=== PATIENT | female | born 1985 | race Caucasian/White ===

== ENCOUNTER 2017-05-07 11:48 | Inpatient (IN) | payer MEDICAID ==
[2017-05-15 19:35] LABS: APPEARANCE,URINE CLEAR; BILIRUBIN,URINE NEGATIVE (NEGATIVE); COLOR,URINE YELLOW; GLUCOSE, URINE NEGATIVE (NEGATIVE); KETONES,URINE TRACE mg/dL (NEGATIVE); LEUKOCYTE ESTERASE,URINE NEGATIVE (NEGATIVE); NITRITE,URINE NEGATIVE (NEGATIVE); PROTEIN,URINE NEGATIVE (NEGATIVE); URINE SPECIFIC GRAVITY 1.024; UROBILINOGEN,URINE NEGATIVE mg/dL (<2.0)
[2017-05-15 19:52] LABS: URINE AMPHETAMINES SCREEN NEGATIVE; URINE BARBITURATES SCREEN NEGATIVE; URINE BENZODIAZEPINES SCREEN NEGATIVE; URINE COCAINE SCREEN NEGATIVE; URINE MARIJUANA (THC) SCREEN NEGATIVE; URINE METHADONE SCREEN NEGATIVE; URINE PHENCYCLIDINE SCREEN NEGATIVE
[2017-05-15] MEDS ORDERED: RINGERS SOLUTION,LACTATED 300 ML IV ONE (19:54)
[2017-05-15] MEDS ORDERED: DINOPROSTONE 10 MG VAGINAL INSERT.SR PV PRN (19:54)
[2017-05-15] MEDS ORDERED: DINOPROSTONE 10 MG VAGINAL INSERT.SR ONE (20:01)
[2017-05-15 20:03] LABS: HEMATOCRIT 38.2 % (36.0-47.0); HEMOGLOBIN 13.4 g/dL (12.0-15.5); MEAN CORPUSCULAR HEMOGLOBIN 31.1 pg (27.0-33.4); MEAN CORPUSCULAR VOLUME 89 fl (80-97); PLATELET COUNT 165 10^3/uL (150-450); RED BLOOD COUNT 4.29 10^6/uL (3.72-5.28); RED CELL DISTRIBUTION WIDTH 13.3 % (11.5-14.0)
[2017-05-15] MEDS: RINGERS SOLUTION,LACTATED 1,000 ML IV PRN (20:11)
[2017-05-16] MEDS ORDERED: MISOPROSTOL 0.1 MG TABLET PV ONE ×2 (10:40→19:10)
[2017-05-16] MEDS ORDERED: MISOPROSTOL 0.1 MG TABLET ONE ×3 (10:52→19:16)
--- NOTE | 2017-05-16 10:53 | L&D Progress Notes ---
PROGRESS NOTES Datetime Report Generated by CPN: 05/16/2017 10:52 PROGRESS NOTE Impression: Normal Progression of Labor Procedures: Sterile Vag Exam Plan: Continue Present Management; Induction; Cervical Ripening Informed Consent Obtained: Vaginal Delivery; Induction of Labor; Risks, Benefits and Alternatives Discussed Vital Signs : Reviewed; Within Normal Limits Comment: Patient admitted for IOL last evening at 41+2ega with unfavorable cervix. Closed/th/hi/firm/post. Cervidil placed at 2000 last pm. Cervidil removed at 0800 and patient showered and ate breakfast. Cervix soft/post/closed/0/high. Offered repeat cervidil dose versus cytotec. She desires cytotec. Reviewed process of IOL and that will likely not deliver until tomorrow. VAGINAL EXAM Dilatation: 0 Dilatation: 0 Effacement: 0 Effacement: 0 Station: -3 Station: -3 Contractions: irreg MEMBRANES Membranes: Intact FETUS A FHR - Baseline: 135 Monitoring: External US Variability: Moderate 6-25bpm Accelerations: 15X15 Decelerations: None FHR Category: Category I : 41.0 : 29.0 Presentation: Vertex Presentation: Vertex SIGNATURE SIGNATURE: [id number] Signature: with User ID: [email or web address]
[2017-05-16] MEDS ORDERED: OXYTOCIN/NORMAL SALINE 20 UNIT/1,000 ML RTUINJ ONE (23:51)
[2017-05-16] MEDS ORDERED: OXYTOCIN/NORMAL SALINE 20 UNIT/1,000 ML RTUINJ IV PRN (23:55)
[2017-05-17] MEDS: RINGERS SOLUTION,LACTATED 1,000 ML IV PRN ×2 (00:02→19:48)
[2017-05-17] MEDS ORDERED: NALBUPHINE HCL INJ 10 MG/1 ML AMPULE INJ ONE (00:30)
--- NOTE | 2017-05-17 00:31 | L&D Progress Notes ---
PROGRESS NOTES Datetime Report Generated by CPN: 05/17/2017 00:30 PROGRESS NOTE Impression: Normal Progression of Labor Procedures: Sterile Vag Exam Plan: Induction; Cervical Ripening Informed Consent Obtained: Vaginal Delivery; Induction of Labor; Risks, Benefits and Alternatives Discussed Comment: Pt has recievd 4 doses of Cytotec 0.25mcg. Cvx with minimal change. however, since now fingertip and soft, will begin pitocin and then may be able to place FB in am. reviewed IOl and poss of Section if unable to obtain labor. EFW approx 8#12oz. REviewed possibility of CPD VAGINAL EXAM Dilatation: ft Effacement: 25 Station: -3 Contractions: irreg FETUS A FHR - Baseline: 125 Monitoring: External US Variability: Moderate 6-25bpm Accelerations: 15X15 Decelerations: None FHR Category: Category I FETUS C SIGNATURE: [id number] Signature: with User ID: [email or web address]
[2017-05-17] MEDS ORDERED: BUPIVACAINE HCL 0.25 % INJ/PF (2.5 MG/1 ML) 30 ML VIAL ONE (05:18)
[2017-05-17] MEDS ORDERED: EPHEDRINE SULFATE INJ 50 MG/1 ML AMPULE ONE ×2 (05:18→21:50)
[2017-05-17] MEDS ORDERED: FENTANYL/BUPIVACAINE/NS/PF 200 MCG/100 ML RTUINJ EPI ONE ×2 (05:18→15:10)
[2017-05-17 06:01] LABS: ABSOLUTE EOSINOPHILS # (AUTO) 0.1 10^3/uL (0.0-0.6); ABSOLUTE LYMPHOCYTES (AUTO) 1.8 10^3/uL (0.5-4.7); ABSOLUTE MONOCYTES (AUTO) 0.7 10^3/uL (0.1-1.4); ABSOLUTE NEUT (AUTO) 6.5 10^3/uL (1.7-8.2); BASOPHILS % (AUTO) 0.3 % (0-2); EOSINOPHILS % (AUTO) 0.7 % (0-6); HEMATOCRIT 37.1 % (36.0-47.0); HEMOGLOBIN 12.7 g/dL (12.0-15.5); LYMPHOCYTES % (AUTO) 19.6 % (13-45); MEAN CORPUSCULAR HEMOGLOBIN 30.7 pg (27.0-33.4); MEAN CORPUSCULAR HGB CONC 34.3 g/dL (32.0-36.0); MEAN CORPUSCULAR VOLUME 89 fl (80-97); MONOCYTES % (AUTO) 7.6 % (3-13); PLATELET COUNT 120 10^3/uL (150-450); RED BLOOD COUNT 4.15 10^6/uL (3.72-5.28); RED CELL DISTRIBUTION WIDTH 13.2 % (11.5-14.0); SEGMENTED NEUTROPHILS % (AUTO) 71.8 % (42-78); TOTAL CELLS COUNTED % (AUTO) 100 %; WHITE BLOOD COUNT 9.1 10^3/uL (4.0-10.5)
--- NOTE | 2017-05-17 07:54 | L&D Progress Notes ---
PROGRESS NOTES Datetime Report Generated by CPN: 05/17/2017 07:54 PROGRESS NOTE Impression: Normal Progression of Labor Procedures: Sterile Vag Exam Plan: Continue Present Management; Induction; Cervical Ripening Informed Consent Obtained: Vaginal Delivery; Induction of Labor; Risks, Benefits and Alternatives Discussed Vital Signs : Reviewed; Within Normal Limits Comment: Patient with cvx 1-2cm and meconium SROM earlier this am. Cooks catheter placed. Continue with cervical ripening. Reviewed pubic bone still prominent but pelvis feels that there is more room now that status post epidural. VAGINAL EXAM Dilatation: 1 Effacement: 25 Station: -3 Contractions: q 1 -2 FETUS A FHR - Baseline: 125 Monitoring: External US Variability: Moderate 6-25bpm Accelerations: 15X15 Decelerations: None FHR Category: Category I FETUS C SIGNATURE: [id number] Signature: with User ID: [email or web address]
--- NOTE | 2017-05-17 11:24 | L&D Progress Notes ---
PROGRESS NOTES Datetime Report Generated by CPN: 05/17/2017 11:24 PROGRESS NOTE Impression: Reassuring Heart Rate; Rupture of Membranes Plan: Continue Present Management; Induction Vital Signs : Reviewed; Within Normal Limits Comment: resting on rt side, Cat 1 strip, irreg uc's, discussed POC FETUS A FHR - Baseline: 135 Variability: Moderate 6-25bpm Accelerations: 15X15 Decelerations: None FETUS C SIGNATURE: [id number] Assignment: Miriam Andrade MD Signature: with User ID: [email or web address] : with User ID: [email or web address]
--- NOTE | 2017-05-17 13:48 | L&D Progress Notes ---
PROGRESS NOTES Datetime Report Generated by CPN: 05/17/2017 13:48 PROGRESS NOTE Impression: Reassuring Heart Rate Plan: Continue Present Management; Induction Vital Signs : Reviewed; Within Normal Limits Comment: comfortable, irreg uc's, potter bulb still in place, Cat 1 strip, periods of minimal variability (sleep cycle) reverting to Cat 1 FETUS A Variability: Moderate 6-25bpm Decelerations: None FHR Category: Category I FETUS C SIGNATURE: [id number] Assignment: Miriam Andrade MD Signature: with User ID: [email or web address] : with User ID: [email or web address]
[2017-05-17] MEDS ORDERED: ONDANSETRON HCL INJ/PF 4 MG/2 ML SDV IV ONE (20:36)
[2017-05-17] MEDS ORDERED: ONDANSETRON HCL INJ/PF 4 MG/2 ML SDV ONE ×2 (20:38→21:50)
[2017-05-17] MEDS ORDERED: CITRIC ACID/SODIUM CITRATE ORAL SOLN 15 ML UDCUP ONE (21:33)
[2017-05-17] MEDS ORDERED: CEFAZOLIN 2 GM/D5W RTU 2 GM/50 ML RTUPB IV ONE (21:33)
[2017-05-17] MEDS ORDERED: SODIUM BICARBONATE 8.4% INJ 50 MEQ/50 ML DISP.SYRIN ONE (21:34)
[2017-05-17] MEDS ORDERED: LIDOCAINE 2%/EPINEPHRINE INJ 20 ML VIAL ONE (21:34)
[2017-05-17] MEDS ORDERED: METOCLOPRAMIDE HCL INJ/PF 10 MG/2 ML SDV ONE (21:34)
[2017-05-17] MEDS ORDERED: FAMOTIDINE INJ/PF 20 MG/2 ML SDV IV ONE (21:34)
[2017-05-17] MEDS ORDERED: FENTANYL CITRATE INJ/PF 100 MCG/2 ML AMPUL ONE (21:49)
[2017-05-17] MEDS ORDERED: OXYTOCIN 10 UNIT/ML VIAL ONE ×2 (21:49→22:23)
[2017-05-17] MEDS ORDERED: KETOROLAC TROMETHAMINE INJ/PF 30 MG/1 ML SDV ONE (21:49)
[2017-05-17] MEDS ORDERED: ACETAMINOPHEN 100 ML IV ONE (21:50)
[2017-05-17] MEDS ORDERED: MIDAZOLAM 2 MG/2 ML INJ ONE (21:50)
[2017-05-17] MEDS ORDERED: OXYTOCIN/NORMAL SALINE 20 UNIT/1,000 ML RTUINJ ONE (21:50)
[2017-05-17] MEDS ORDERED: MISOPROSTOL 0.2 MG TABLET ONE ×2 (22:21→22:22)
[2017-05-17] MEDS ORDERED: METHYLERGONOVINE MALEATE INJ/PF 0.2 MG/1 ML AMPULE ONE (22:22)
[2017-05-17] MEDS ORDERED: CARBOPROST TROMETHAMINE INJ 250 MCG/1 ML AMPULE ONE (22:22)
[2017-05-17] MEDS ORDERED: MEPERIDINE HCL/PF INJ 25 MG/1 ML DISP.SYRIN ONE (23:15)
[2017-05-17] MEDS ORDERED: OXYTOCIN/NORMAL SALINE 20 UNIT/1,000 ML RTUINJ IV PRN (23:33)
[2017-05-17] MEDS ORDERED: OXYCODONE-ACETAMINOPHEN 5-325 MG TABLET PO PRN (23:33)
[2017-05-17] MEDS ORDERED: PROMETHAZINE HCL INJ 25 MG/1 ML VIAL IV PRN (23:33)
[2017-05-17] MEDS ORDERED: ACETAMINOPHEN 100 ML IV PRN (23:33)
[2017-05-17] MEDS ORDERED: HYDROMORPHONE HCL INJ/PF 2 MG/ML AMPULE IV PRN (23:33)
[2017-05-17] MEDS ORDERED: DIPH/PERTUSS(ACELL)/TETANUS VAC/PF 0.5 ML SYR (>=10YO) IM PRN (23:33)
[2017-05-17] MEDS ORDERED: MEASLES,MUMPS&RUBELLA VACC/PF 0.5 ML VIAL SUBCUT PRN (23:33)
[2017-05-17] MEDS ORDERED: ACETAMINOPHEN 325 MG TABLET PO PRN (23:33)
[2017-05-17] MEDS ORDERED: SIMETHICONE 80 MG TAB.CHEW PO PRN (23:33)
[2017-05-17] MEDS ORDERED: AMPICILLIN SOD/SULBACTAM 3 GM VIAL IV PRN (23:45)
--- NOTE | 2017-05-17 23:47 | Delivery Summary ---
Del Sum A-C Datetime Report Generated by CPN: 05/17/2017 23:47 DELIVERY PERSONNEL DELIVERY PERSONNEL: [id number] Delivery Doctor:: Miriam Andrade MD Anesthesiologist:: Erin Fernando MD SUPERVISOR FUR DRESSING:: Matias Ocasio CRNA Labor and Delivery Nurse:: Mayra Ahumada RN Ct Manager:: Shila Nassar RN Neonatal Nurse Practitioner:: EILEEN Vanegas Nursery Nurse:: Aisha Welch RN Nursery Nurse:: Annemarie Angela RN Construction Checker/CHAIR CAR ATTENDANT: ST Betty Construction Checker/CHAIR CAR ATTENDANT: ST Anne Additional Personnel: : Robby Hernandez CNA MATERNAL INFORMATION Delivery Anesthesia: Epidural Medications After Delivery: Pitocin Bolus-Please Comment; Cytotec 400mcg Per Rectum/Vagina Meds After Delivery Comment: 40 units pitocin in OR. 0.2 mg methergine intrauterine. cytotec 600 sublingual. cytotec 400mcg per rectum Maternal Complications: Chorioamnionitis; Maternal Fever Other Maternal Complications: prior to delivery temp was 99.1 axillary temperature spiked to 102 during csection LABOR SUMMARY EDC: 05/07/2017 00:00 No. Babies in Womb: 1 Attempted: No Labor Anesthesia: Epidural LABOR INFORMATION Reason for Induction: Post Dates Onset of Labor: 05/17/2017 01:00 Cervical Ripening Agents: Cervidil; Haney Balloon; Cytotec @ Oxytocin: Induction Group B Beta Strep: NEGATIVE Antibiotics # of Doses: 0 Antibiotics Time of Last Dose: 2149 Name of Antibiotic Given: ancef 2 grams Steroids Given: None Reason Steroids Not Administered: Not Applicable MEMBRANES Membranes Rupture Method: Spontaneous Rupture of Membranes: 05/17/2017 01:11 Length of Rupture (hr): 21.10 Amniotic Fluid Color: Moderate Meconium Amniotic Fluid Amount: Large Amniotic Fluid Odor: Foul STAGES OF LABOR Stage 3 hr: 0 Stage 3 min: 1 Total Time in Labor hr: 21 Total Time in Labor min: 18 VAGINAL DELIVERY Episiotomy: None Laceration #1: None Laceration Extension #1: N/A Sponge Count Correct: N/A Sharps Count Correct: N/A CSECTION DELIVERY Primary Indication: Other Other Primary Indication: Failure to progress Secondary Indication: N/A CSection Urgency: Non-Scheduled CSection Incidence: Primary Labor: Labor Elective: N/A CSection Incision: Lower Uterine Transverse BABY A INFORMATION Infant Delivery Date/Time: 05/17/2017 22:17 Method of Delivery: Born in Route : No : N/A Forceps: N/A Vacuum Extraction: N/A Shoulder Dystocia : No PRESENTATION/POSITION BABY A Presentation: Cephalic Cephalic Presentation: Vertex Vertex Position: Left Occipital Anterior Breech Presentation: N/A PLACENTA INFORMATION BABY A Placenta Delivery Time : 05/17/2017 22:18 Placenta Method of Delivery: Manual Removal Placenta Status: Delivered SCORES BABY A Heart Rate 1 min: >100 bpm Resp Effort 1 min: Good Cry Reflex Irritability 1 min: Cough or Sneeze or Pulls Away Muscle Tone 1 min: Active Motion Color 1 min: Body [place], Extremities Blue Resuscitation Effort 1 min: Tactile Stimulation SCORE 1 MIN: 9 Heart Rate 5 min: >100 bpm Resp Effort 5 min: Good Cry Reflex Irritability 5 min: Cough or Sneeze or Pulls Away Muscle Tone 5 min: Active Motion Color 5 min: Body [place], Extremities Blue Resuscitation Effort 5 min: Tactile Stimulation SCORE 5 MIN: 9 INFORMATION BABY A Gestational Age at Delivery: 41.3 Gestational Status: Late Term- 41- 41.6 Weeks Outcome : Liveborn Condition : Stable Infant Sex: Male IDENTIFICATION BABY A Infant Verification Date/Time: 05/17/2017 22:34 ID Band Number: [id number] Mother's Name Verified: Yes RN Verifying Infant: Mateusz Hussein, RN Additional Verifying Personnel: Mateusz Hernandez CNA WEIGHT/LENGTH BABY A Birthweight (gm): 3930 Weight (lb): 8 Weight (oz): 11 Infant Length (in): 20.50 Length (cm): 52.07 CORD INFORMATION BABY A No. Cord Vessels: 3 Nuchal Cord : N/A Cord Blood Taken: Yes-For Eval (Mom's Blood Type - or O+) Suction: Mouth; Nose ASSESSMENT BABY A Complications: Meconium Physical Findings at Delivery: Caput Succedaneum; Molding of the Head Infant Respirations: Tachypnea Skin to Skin: No Center Consultant/ALS Called : No Care By: chief of internal medicine mcgregor and rn angela Transferred To: NICU BABY B INFORMATION : N/A
--- NOTE | 2017-05-18 00:18 | OPERATIVE REPORT E ---
Operative Report NAME: MAURY PAGAN : 1985 AGE: 31Y DATE OF SURGERY: 05/17/2017 ROOM: LR200 PREOPERATIVE DIAGNOSIS: 1. IUP at 41 weeks and 3 days, failure to progress. 2. Chorioamnionitis. POSTOPERATIVE DIAGNOSIS: 1. IUP at 41 weeks and 3 days, failure to progress. 2. Chorioamnionitis. SURGEON: MIRTHA TRINH M.D. ANESTHESIA: Dr. Fernando with an epidural. FINDINGS: Male infant in cephalic presentation with Apgars of 7 and 8, febrile at delivery and meconium present. *------*. Umbilical cord measured 12 inches. ESTIMATED BLOOD LOSS: 600 mL. SPECIMENS REMOVED: None. OPERATION: Low transverse hysterotomy section. PROCEDURE IN DETAIL: Patient was taken to the operating room, prepared and draped in a normal sterile fashion in the supine position with a leftward tilt. A transverse skin incision was made with the scalpel and carried through to the underlying layer of fascia with the same scalpel. The fascia was incised in the midline and extended laterally with Rakesh. The fascia was then dissected sharply from the rectus muscle sharply with Rakesh and the rectus muscle was divided. The peritoneal cavity was entered bluntly. The bladder blade was inserted and the hysterotomy was nicked with the scalpel and extended laterally with surgeon finger fracture. The infant was then delivered atraumatically. The nose and mouth was suctioned with a suction bulb and cord was clamped and cut and the infant was handed off to waiting python programmer. The cord blood was collected and at this time we noted that the infant was feeling very warm and this was conveyed to the nursery. The cord blood was collected and the placenta was removed manually. The uterus was exteriorized and cleared of clots and debris. The hysterotomy was closed with 0 Monocryl in a running locked fashion. The second layer of the same suture was used to imbricate to ensure hemostasis. It was noted that the uterus was quite boggy, therefore Methergine was injected directly into the muscle 0.2 mg and Cytotec was placed sublingually to assist with apnea. No hemorrhage was noted at the time and the uterine muscle did resolve its apnea during the procedure. The rectus muscle and peritoneal cavity were reapproximated with a mattress suture of 2-0 chromic. The fascia was closed with 0 Vicryl. The subcutaneous layer was closed with plain catgut. The skin was closed with 4-0 Vicryl. The patient tolerated the procedure well. Sponge, lap, and needle counts were correct x2 and the patient was taken to recovery in stable condition. DICTATING PHYSICIAN: MIRTHA TRINH M.D. [id number] PHY#: [id number] ID: [id number] JOB#: [id number] ACCT: [id number] cc:MIRTHA TRINH M.D. >
[2017-05-18] MEDS ORDERED: MORPHINE SULFATE 10 MG/ML INJ ONE (00:22)
[2017-05-18] MEDS ORDERED: KETOROLAC TROMETHAMINE INJ/PF 30 MG/1 ML SDV ONE (00:51)
--- NOTE | 2017-05-18 01:28 | Admission Physical ---
Datetime Report Generated by CPN: 05/18/2017 01:28 CURRENT ADMISSION Chief Complaint: Scheduled Induction of Labor Chief Complaint: Scheduled Induction of Labor Indication for Induction: Postterm Indication for Induction: Post Dates Indication for Induction: Term, Intrauterine ; Postterm, Intrauterine Indication for Induction: Postterm, Intrauterine Admit Plan: Admit to Unit; Initiate Labor Induction Protocol Admit Plan: Admit to Unit; Initiate Labor Induction Protocol ALLERGIES Medication Allergies: No Medication Allergies: No Known Allergies (05/15/2017) Medication Allergies: No Known Allergies (03/11/2014) Latex: No Latex Allergies OBSTETRICAL HISTORY EDC: 05/07/2017 00:00 : 1 Para: 0 Term: 0 : 0 SAB: 0 IAB: 0 Ectopic: 0 Livin Cesareans: 0 VBACs: 0 Multiple Births: 0 Gestational Diabetes: No Rh Sensitization: No Incompetent Cervix: No [place]: No Infertility: No ART Treatment: No Uterine Anomaly: No IUGR: No Hx Previous C/S: No Macrosomia: No Hx Loss/Stillborn: No PIH: No Hx : No Placenta Previa/Abruption: No Depression/PP Depression: No PTL/PROM: No Post Hemorrhage: No Current Procedures: Ultrasound; NST Obstetrical History Comments: CURRENT SEE RECORDS Alcohol: No Marijuana : No Cocaine: No Other Illicit Drugs: No Cigarettes: Former Smoker. [id number] MEDICAL HISTORY Diabetes: No Blood Transfusion: No Pulmonary Disease (Asthma, TB): No Breast Disease: No Hypertension: No Mushroom Picker Surgery: No Heart Disease: No Hosp/Surgery: No Autoimmune Disorder: No Anesthetic Complications: No Kidney Disease: No Abnormal Pap Smear: Yes Neuro/Epilepsy: No Psychiatric Disorders: No Other Medical Diseases: Yes Hepatitis/Liver Disease: No Significant Family History: No Varicosities/Phlebitis: No Trauma/Violence : No Thyroid Dysfunction: No Medical History Comments: ABN PAP- HPV; OBESITY INFECTIOUS HISTORY Gonorrhea: No Genital Herpes: No Chlamydia: No Tuberculosis: No Syphilis: No Hepatitis: No HIV/AIDS Exposure: No Rash or Viral Illness: No HPV: Yes PHYSICAL EXAM General: Normal General: Normal HEENT: Normal HEENT: Normal Neurologic: Normal Neurologic: Normal Thyroid: Normal Thyroid: Normal Heart: Normal Heart: Normal Lungs: Normal Lungs: Normal Breast: Deferred Breast: Deferred Back: Normal Back: Normal Abdomen: Normal Abdomen: Normal Genitourinary Exam: Normal Genitourinary Exam: Normal Extremities: Normal Extremities: Normal DTRs: Normal DTRs: Normal Pelvic Type: Adequate Pelvic Type: Adequate Vital Signs: Reviewed Vital Signs: Reviewed VAGINAL EXAM Dilatation: 1 Dilatation: ft Dilatation: 0 Dilatation: 0 Effacement: 25 Effacement: 25 Effacement: 0 Effacement: 0 Station: -3 Station: -3 Station: -3 Station: -3 Contraction Comments: q 1 -2 Contraction Comments: irreg Contraction Comments: irreg MEMBRANES Membranes: Intact FETUS A EGA: 41.1 EGA: 41.1 Monitoring: External US Monitoring: External US FHR- Baseline: 140 Variability: Minimal - Undetectable to <=5bpm Decelerations: None Presentation: Vertex Presentation: Vertex Admit Comment: Last entry in error. She is here for induction for postdates. Admit Comment: Bleeding placenta previa. We will plan a double set up exam and consider a c section PLANS FOR LABOR AND DELIVERY Labor and Delivery: None Pain Management: Epidural Feeding Preference: Breast Benefit of Breast Feed Discussed: Yes Circumcision: Yes INFORMED CONSENT Informed Consent Obtained: Vaginal Delivery; Induction of Labor; Risks, Benefits and Alternatives Discussed Informed Consent Obtained: Vaginal Delivery; Induction of Labor; Risks, Benefits and Alternatives Discussed Informed Consent Obtained: Vaginal Delivery; Induction of Labor; Risks, Benefits and Alternatives Discussed Signature: Electronically signed by Willard Valdovinos MD ([facility]) on 05/15/2017 at 21:21 with User ID: [email or web address] Signature: Electronically signed by Willard Valdovinos MD ([facility]) on 05/15/2017 at 21:18 with User ID: [email or web address] : Electronically signed by Willard Valdovinos MD ([facility]) on 05/15/2017 at 21:18 with User ID: [email or web address]
[2017-05-18] MEDS ORDERED: AMPICILLIN SODIUM/SULBACTAM NA 3 GM in NORMAL SALINE 100 ML IV SCH (02:00)
[2017-05-18] MEDS: RINGERS SOLUTION,LACTATED 1,000 ML IV PRN (02:11)
[2017-05-18] MEDS: IBUPROFEN 800 MG TABLET PO SCH ×4 (02:48→17:59)
[2017-05-18] MEDS: OXYCODONE-ACETAMINOPHEN 5-325 MG TABLET PO PRN ×4 (05:43→20:14)
[2017-05-18] MEDS: KETOROLAC TROMETHAMINE INJ/PF 30 MG/1 ML SDV IV SCH ×3 (06:36→22:08)
[2017-05-18 07:18] LABS: HEMATOCRIT 27.3 % (36.0-47.0); MEAN CORPUSCULAR HEMOGLOBIN 31.2 pg (27.0-33.4); MEAN CORPUSCULAR HGB CONC 34.6 g/dL (32.0-36.0); MEAN CORPUSCULAR VOLUME 90 fl (80-97); PLATELET COUNT 116 10^3/uL (150-450); RED BLOOD COUNT 3.04 10^6/uL (3.72-5.28); RED CELL DISTRIBUTION WIDTH 13.2 % (11.5-14.0); WHITE BLOOD COUNT 13.3 10^3/uL (4.0-10.5)
[2017-05-18 07:20] LABS: HEMOGLOBIN 9.5 g/dL (12.0-15.5)
--- NOTE | 2017-05-18 08:26 | PDOC PROGRESS REPORT ---
Subjective-OB Progress Note for:: 05/18/17 Subjective: Hsb in room, talking, pain under control, baby still in NICU, plans to breastfeed, no nausea, eating and drinking, potter in place Physical Exam (OB) Vital Signs: Temp Pulse Resp BP Pulse Ox 98.4 F 89 18 108/52 L 95 05/18/17 05:26 05/18/17 05:26 05/18/17 05:26 05/18/17 05:26 05/18/17 05:26 Intake & Output 05/17/17 05/18/17 05/19/17 06:59 06:59 06:59 Intake Total 1600 Output Total 900 Balance 700 - Dressing Removed: No - op site Incision: Dressing - Lochia Lochia Amount: Small 10-25 ml Lochia Color: Rubra/Red - Abdomen Description: Soft, Round Hernia Present: No Fundal Description: Firm, Midline Fundal Height: u/u - u/2 Objective-Diagnostic Laboratory: 05/18/17 07:00 05/18/17 07:00 WBC 13.3 H RBC 3.04 L Hgb 9.5 L D Hct 27.3 L MCV 90 MCH 31.2 MCHC 34.6 RDW 13.2 Plt Count 116 L Assessment and Plan(PN) - Assessment and Plan (1) Chorioamnionitis, delivered, current hospitalization Is this a current diagnosis for this admission?: Yes (2) Delivery by emergency caesarean section Is this a current diagnosis for this admission?: Yes (3) Post term at 41 weeks gestation Is this a current diagnosis for this admission?: Yes - Time Spent with Patient Time with patient: Less than 15 minutes Medications reviewed and adjusted accordingly: Yes - Disposition Anticipated Discharge: Home Within: within 48 hours
[2017-05-18] MEDS: PRENATAL VITAMIN W DHA CAPSULE PO SCH (10:25)
[2017-05-18] MEDS: DOCUSATE SODIUM 100 MG CAPSULE PO SCH ×2 (10:25→17:58)
[2017-05-18] MEDS: AMPICILLIN SODIUM/SULBACTAM NA 3 GM in NORMAL SALINE 100 ML IV SCH ×2 (10:26→17:59)
[2017-05-19] MEDS: IBUPROFEN 800 MG TABLET PO SCH ×4 (00:35→18:01)
[2017-05-19] MEDS: OXYCODONE-ACETAMINOPHEN 5-325 MG TABLET PO PRN ×2 (03:34→19:32)
--- NOTE | 2017-05-19 08:14 | PDOC PROGRESS REPORT ---
Subjective-OB Progress Note for:: 05/19/17 Physical Exam (OB) Vital Signs: Temp Pulse Resp BP Pulse Ox 98.4 F 82 16 123/78 98 05/19/17 08:02 05/19/17 08:02 05/19/17 08:02 05/19/17 08:02 05/19/17 08:02 Intake & Output 05/18/17 05/19/17 05/20/17 06:59 06:59 06:59 Intake Total 1600 1122 Output Total 900 1150 Balance 700 -28 - PIH/Pre-Eclampsia Clonus: Negative Headache: Absent Epigastric Pain: No Visual Changes: No - Dressing Removed: No Incision: Well Approximated - Lochia Lochia Amount: Scant < 10 ml Lochia Color: Rubra/Red - Abdomen Description: Soft, Round Hernia Present: No Bowel Sounds: Normoactive Flatus Presence: Present Stool: No Fundal Description: Firm Fundal Height: u/u - u/2 - Respiratory Breath sounds: Clear - Extremities Calf: Normal Objective-Diagnostic Laboratory: 05/18/17 07:00 Assessment and Plan(PN) - Time Spent with Patient Medications reviewed and adjusted accordingly: Yes - Disposition Anticipated Discharge: Home
[2017-05-19] MEDS: PRENATAL VITAMIN W DHA CAPSULE PO SCH (09:12)
[2017-05-19] MEDS: DOCUSATE SODIUM 100 MG CAPSULE PO SCH ×2 (09:12→18:02)
[2017-05-20] MEDS: IBUPROFEN 800 MG TABLET PO SCH ×4 (00:04→18:43)
[2017-05-20] MEDS: DOCUSATE SODIUM 100 MG CAPSULE PO SCH ×2 (10:53→18:43)
[2017-05-20] MEDS: PRENATAL VITAMIN W DHA CAPSULE PO SCH (10:53)
--- NOTE | 2017-05-20 13:46 | PDOC DISCHARGE SUMMARY ---
Final Diagnosis Discharge Date: 05/20/17 - Final Diagnosis (1) Anemia due to acute blood loss Is this a current diagnosis for this admission?: Yes (2) Chorioamnionitis, delivered, current hospitalization Is this a current diagnosis for this admission?: Yes (3) Delivery by emergency caesarean section Is this a current diagnosis for this admission?: Yes Discharge Data - Discharge Medication Home Medications: Vit/Iron Fum/Folic AC [ Tablet] 1 tab PO DAILY 05/15/17 Reason(s) for Admission: Ceasarean Section-Primary Intrapartum Procedure(s): : Low Cervical, Transverse - Diagnosis Test Laboratory: Temp Pulse Resp BP Pulse Ox 98.1 F 92 18 133/77 H 99 05/20/17 11:54 05/20/17 11:54 05/20/17 11:54 05/20/17 11:54 05/20/17 11:54 05/15/17 05/15/17 05/17/17 18:56 19:47 05:50 RBC 4.29 4.15 Hgb 13.4 12.7 Hct 38.2 37.1 Urine Opiates Screen NEGATIVE 05/18/17 07:00 RBC 3.04 L Hgb 9.5 L D Hct 27.3 L Urine Opiates Screen - Discharge information/Instructions Discharge Activity: Balance Activity w/Rest, No Lifting Over 10 Pounds Discharge Diet: Regular Disposition: HOME, SELF-CARE Follow up with: [facility] - saturday for post op in: 1
[2017-05-20 16:39] VITALS: BP 121/76
== END 2017-05-20 18:30 | disposition home or self-care (01) | DRG 765 ==
LOC: LR 05-15 18:44 → 2S 05-18 01:10
PROVIDERS: ADMIT Obstetrics & Gynecology; ATTEND Obstetrics & Gynecology
PROC: 4A1HXCZ Monitoring of Products of Conception, Cardiac Rate, External Approach (ICD-10-PCS; 2017-05-15)
PROC: 3E0P7VZ Introduction of Hormone into Female Reproductive, Via Natural or Artificial Opening (ICD-10-PCS; 2017-05-16)
PROC: 3E033VJ Introduction of Other Hormone into Peripheral Vein, Percutaneous Approach (ICD-10-PCS; 2017-05-16)
PROC: 10D00Z1 Extraction of Products of Conception, Low, Open Approach (ICD-10-PCS; principal; 2017-05-17)
DX: O61.0 Failed medical induction of labor (principal); O41.1230 Chorioamnionitis, third trimester, not applicable or unspecified; D62 Acute posthemorrhagic anemia; O48.0 Post-term pregnancy; O99.02 Anemia complicating childbirth; O99.214 Obesity complicating childbirth; O77.0 Labor and delivery complicated by meconium in amniotic fluid; Z68.37 Body mass index [BMI] 37.0-37.9, adult; Z3A.41 41 weeks gestation of pregnancy; Z37.0 Single live birth; Z87.891 Personal history of nicotine dependence
CPT/HCPCS: 1961; 36415; 59025; 80307; 81005; 85025; 85027; 86592; 86850; 86900; 86901; 94760; 94799; J0131; J0295; J0690; J1885; J2175; J2210; J2250; J2270; J2405; J2590; J2765; J3010; J3490; J7120; S0028